=== PATIENT | female | born 1950 | race Caucasian/White ===

== ENCOUNTER 2021-09-19 06:52 | Outpatient (CLI) | payer OTHER | END 2021-09-19 07:00 | disposition home or self-care (01) | LOC: RAD 06:52 | PROVIDERS: ATTEND Student in an Organized Health Care Education/Training Program | DX: K44.9 Diaphragmatic hernia without obstruction or gangrene (principal); Z12.11 Encounter for screening for malignant neoplasm of colon; R19.4 Change in bowel habit; I70.8 Atherosclerosis of other arteries ==